=== PATIENT | male | born 1940 | race Caucasian/White ===

== ENCOUNTER 2017-10-18 05:04 | Inpatient (IN) | payer OTHER, MEDICARE ==
[~2017-10-18] VITALS: Ht 170.2 cm; Wt 70.3 kg
[~2017-10-18 05:04] MED LIST: APIX5TAB PO; ASPI-621 PO; ASPI325T17 PO; ATOR80TA PO; DILT60TA30 PO; EZET10TA18 PO; GLUC1CAP48 PO; LISI-170 PO; METO25TA35 PO; NAPR250T6 PO; NITR0.4T SL; PRAV40TA2 PO; TICA90TA PO
[2017-10-18] MEDS ORDERED: SODIUM CHLORIDE FLUSH 10ML SYR IVF ONE (05:30)
[2017-10-18] MEDS ORDERED: ASPIRIN 81 MG TABLET CHEW PO ONE (05:30)
[2017-10-18] MEDS ORDERED: ASPIRIN 81 MG TABLET CHEW ONE (05:42)
[2017-10-18] MEDS ORDERED: ROSU20TA PO (05:49)
[2017-10-18] MEDS ORDERED: EZET10TA18 PO (05:49)
[2017-10-18 06:16] LABS: BASOPHILS % (AUTO) 0 % (0-1); EOSINOPHILS # (AUTO) 0.08 x10^3/uL (0-0.4); EOSINOPHILS % (AUTO) 2 % (1-7); LYMPHOCYTES # (AUTO) 1.35 x10^3/uL (1-3.4); LYMPHOCYTES % (AUTO) 29 % (22-44); MD NO; MEAN CORPUSCULAR HEMOGLOBIN 32.4 pg (27.5-34.5); MEAN CORPUSCULAR VOLUME 92.5 fL (81-97); MEAN PLATELET VOLUME 7.7 fL (7.4-10.4); MONOCYTES # (AUTO) 0.47 x10^3/uL (0.2-0.8); MONOCYTES % (AUTO) 10 % (2-9); NEUTROPHILS # (AUTO) 2.71 x10^3/uL (1.8-6.8); NEUTROPHILS % (AUTO) 59 % (42-75); PLATELET COUNT 174 x10^3/uL (130-400); RED BLOOD COUNT 3.96 x10^6/uL (4.38-5.82); RED CELL DISTRIBUTION WIDTH 12.3 % (9.4-14.8)
[2017-10-18 06:24] LABS: ALBUMIN 3.9 g/dL (3.4-5.0); ANION GAP 6 mmol/L (5-15); CALCIUM 8.7 mg/dL (8.5-10.1); CHLORIDE 107 mmol/L (98-107)
[2017-10-18 06:30] LABS: ALANINE AMINOTRANSFERASE 27 U/L (12-78); ALKALINE PHOSPHATASE 93 U/L (45-117); BILIRUBIN,TOTAL 0.9 mg/dL (0.2-1.0); CREATININE 0.89 mg/dL (0.7-1.3); TOTAL PROTEIN 7.8 g/dL (6.4-8.2); TROPONIN I < 0.015 ng/mL (0.000-0.045)
[2017-10-18] MEDS ORDERED: TEMAZEPAM 15 MG CAPSULE PO PRN (09:00)
[2017-10-18] MEDS ORDERED: GUAIFENESIN/DM 200-20MG, 10ML UDC PO PRN (09:00)
[2017-10-18] MEDS ORDERED: SODIUM CHLORIDE FLUSH 10ML SYR IVF PRN (09:00)
[2017-10-18] MEDS ORDERED: ACETAMINOPHEN 325 MG TABLET PO PRN (09:00)
[2017-10-18] MEDS ORDERED: ONDANSETRON 2MG/ML, 2ML IVPush PRN (09:00)
[2017-10-18] MEDS ORDERED: ENALAPRILAT 1.25 MG/ML, 2ML IVPush PRN (09:00)
[2017-10-18 09:54] VITALS: BP 147/82
[2017-10-18] MEDS ORDERED: ENOXAPARIN 40 MG/0.4 ML SQ SCH (10:00)
[2017-10-18 10:44] LABS: TROPONIN I < 0.015 ng/mL (0.000-0.045)
[2017-10-18] MEDS: APIXABAN 5 MG TABLET PO SCH ×2 (10:53→21:13)
[2017-10-18 14:45] VITALS: BP 137/72
[2017-10-18 17:01] LABS: TROPONIN I < 0.015 ng/mL (0.000-0.045)
[2017-10-18 19:23] VITALS: BP 126/76
[2017-10-18] MEDS ORDERED: ATORVASTATIN 40 MG TABLET PO SCH (21:00)
[2017-10-18] MEDS ORDERED: APIXABAN 5 MG TABLET PO SCH (21:00)
[2017-10-18] MEDS: DILTIAZEM 120 MG TABLET PO SCH (21:12)
[2017-10-19 00:46] VITALS: BP 110/63
[2017-10-19 07:12] VITALS: BP 136/82
[2017-10-19] MEDS ORDERED: KETOROLAC 30 MG/1 ML IVPush ONE (08:00)
[2017-10-19] MEDS ORDERED: EZETIMIBE 10 MG TABLET PO SCH (09:00)
[2017-10-19] MEDS: DILTIAZEM 120 MG TABLET PO SCH (10:26)
[2017-10-19] MEDS: APIXABAN 5 MG TABLET PO SCH (10:28)
[2017-10-19 12:39] VITALS: BP 133/69
== END 2017-10-19 15:30 | disposition home or self-care (01) | DRG 303 ==
LOC: ED 06:11 → EDIP 08:34 → 4WST 09:43 → DCLOUNGE 10-19 14:48
PROVIDERS: ADMIT Internal Medicine; ATTEND Internal Medicine
DX: I25.110 Atherosclerotic heart disease of native coronary artery with unstable angina pectoris (principal); I48.0 Paroxysmal atrial fibrillation; E78.00 Pure hypercholesterolemia, unspecified; I10 Essential (primary) hypertension; Z95.5 Presence of coronary angioplasty implant and graft; I25.2 Old myocardial infarction; Z79.82 Long term (current) use of aspirin; Z90.49 Acquired absence of other specified parts of digestive tract
CPT/HCPCS: 36415; 71010; 78452; 80053; 84484; 85025; 93005; 93017; J1885; A9502; C9898